=== PATIENT | male | born 1970 | race Caucasian/White ===

== ENCOUNTER 2018-04-06 15:05 | Outpatient (CLI) | payer OTHER, SELFPAY ==
--- NOTE | 2018-04-06 14:00 | DI.RAD_ITS ---
SYMPTOMS/DIAGNOSIS: LEFT HIP PAIN X 2 MOS, M25.552 LUMBAR SPINE: AP, lateral and bilateral oblique views of the lumbar spine. There are five lumbar-type vertebral bodies. There is normal alignment. No spondylolysis or spondylolisthesis is seen. The disc heights are fairly well maintained. There are endplate osteophytes present throughout the lumbar spine. Degenerative changes of the facets are seen at L3-4 through L5-S1. No acute fractures or subluxations are seen. IMPRESSION: Mild degenerative changes in the lumbar spine. LEFT HIP AND PELVIS: The left hip has a normal appearance. The sacroiliac joints and symphysis pubis are unremarkable. There is a small spur arising from the lateral aspect of the right humeral head. The soft tissues are unremarkable. IMPRESSION: 1. Negative left hip. 2. Mild degenerative changes of the right hip.
== END 2018-04-06 15:25 ==
PROVIDERS: PCP Family Medicine; Visit Provider Nurse Practitioner Family
DX: M25.552 Pain in left hip (principal); M16.11 Unilateral primary osteoarthritis, right hip; M47.817 Spondylosis without myelopathy or radiculopathy, lumbosacral region
CPT/HCPCS: 72110; 73502

== ENCOUNTER 2018-04-16 01:33 | Outpatient (CLI) | payer OTHER, SELFPAY ==
--- NOTE | 2018-04-16 08:20 | DI.MRI_ITS ---
SYMPTOMS/DIAGNOSIS: LEFT LOWER EXTREMITY RADICULOPATHY, LEFT HIP PAIN, M54.10, M25.552 MRI OF THE LUMBAR SPINE: Comparison is made with plain films dated April,. T1, T2 and STIR sagittal and T1 and T2 axial sequences were performed. The T12-L1 and L1-2 discs are unremarkable. At L2-3, there is mild broad-based disc bulging. There is no significant neural foraminal narrowing or central canal stenosis. At L3- 4, there is broad-based disc bulging, greater laterally. There are mild facet degenerative changes. There is slight central canal stenosis. At L4-5, there is mild broad-based disc bulging. There is a superimposed central disc protrusion, which is slightly eccentric toward the left. There are prominent facet degenerative changes as well as ligamentous hypertrophy. The findings combine to produce a moderate to severe degree of central canal stenosis. There is no significant neural foraminal encroachment. The L5-S1 level shows mild facet joint degenerative changes. The marrow signal and conus medullaris are unremarkable. IMPRESSION: Central disc protrusion at L4-5 causes significant impression on the thecal sac, as well as moderate to severe central canal stenosis.
== END 2018-04-16 01:53 ==
PROVIDERS: PCP Nurse Practitioner Family; Visit Provider Nurse Practitioner Family
DX: M25.552 Pain in left hip (principal); M54.16 Radiculopathy, lumbar region; M51.26 Other intervertebral disc displacement, lumbar region; M48.061 Spinal stenosis, lumbar region without neurogenic claudication
CPT/HCPCS: 72148

== ENCOUNTER 2018-05-26 09:08 | Outpatient (CLI) | payer OTHER, SELFPAY ==
[2018-05-26 11:00] LABS: Abs Immature Grans 0.01 k/cumm (0.0-0.09); Absolute Basophil Count 0.04 k/cumm (0.0-0.2); Absolute Eosinophil Count 0.21 k/cumm (0.0-0.7); Absolute Lymphocyte Count 1.85 k/cumm (1.2-3.4); Absolute Monocyte Count 0.54 k/cumm (0.11-0.7); Absolute Neutrophil Count 3.16 k/cumm (1.2-6.7); Basophils % 0.7; Eosinophils % 3.6; HCT 46.7 % (40.0-50.0); HGB 15.9 g/dL (13.5-17.5); Immature Grans % 0.2; Lymphocytes % 31.8; Mean Corpuscular Hemoglobin 30.5 pg (27.0-33.0); Mean Corpuscular Volume 89.6 fL (80-95); Mean Platelet Volume 10.1 fL (8.0-11.0); Monocytes % 9.3; Neutrophils % 54.4; Platelet Count 318 x1000/uL (130-400); RBC 5.21 m/cumm (4.50-6.00); RBC Distribution Width 12.2 % (11.8-14.1); White Blood Cell Count 5.81 k/cumm (4.4-10.8)
[2018-05-26 11:45] LABS: ALT 71 U/L (12-78); AST 33 U/L (15-37); Alkaline Phosphatase 76 U/L (46-116); Anion Gap 8.9 mmol/L (3-11); BUN 13 mg/dL (7-18); Bilirubin, Total 0.8 mg/dL (0.2-1.0); CO2 27.1 mmol/L (21.0-32.0); CREATININE 0.86 mg/dL (0.70-1.30); Calcium 9.3 mg/dL (8.5-10.1); Chloride 105 mmol/L (98-107); Cholesterol 222 mg/dL (50-200); Glucose 101 mg/dL (70-100); HDL Cholesterol 59 mg/dL (40-60); LDL CHOLESTEROL 146 mg/dL (<100); Potassium 4.5 mmol/L (3.5-5.1); Sodium 141 mmol/L (136-145); TSH 2.61 uIU/mL (0.358-3.74); Total Protein 7.3 g/dL (6.4-8.2); Triglyceride 80 mg/dL (30-150)
[2018-05-26 12:05] LABS: Hemoglobin A1C 5.8 % (4.5-6.2)
== END 2018-05-26 09:28 ==
PROVIDERS: PCP Nurse Practitioner Family; Visit Provider Nurse Practitioner Family
DX: Z00.00 Encounter for general adult medical examination without abnormal findings (principal); Z13.220 Encounter for screening for lipoid disorders; Z13.29 Encounter for screening for other suspected endocrine disorder; Z13.1 Encounter for screening for diabetes mellitus; Z01.818 Encounter for other preprocedural examination
CPT/HCPCS: 36415; 80053; 80061; 83721; 83036; 84154; 84439; 84443; 85025

== ENCOUNTER 2021-11-29 17:54 | Inpatient (IN) | payer OTHER, SELFPAY ==
[2021-11-29] VITALS (9 sets, daily range): BP systolic 123–142; BP diastolic 64–85; PULSE 66–95; RESP 16–27; TEMP 36.8–38.5; O2SAT 92–98
--- NOTE | 2021-11-29 18:45 | DI.CT_ITS ---
Exam(s) CT ABDOMEN PELVIS W EXAM: CT ABDOMEN PELVIS W CLINICAL HISTORY: RLQ pain TECHNIQUE: COMPARISON: No exams were available for comparison FINDINGS: CT examination of the abdomen and pelvis was performed with bolus infusion of 100 cc of Omnipaque 350 . Images obtained through the lung bases are unremarkable. The liver appears normal with no evidence of a focal mass. Spleen is unremarkable in appearance.. Gallbladder and bile ducts are unremarkable. Pancreas is unremarkable in appearance. Adrenals appear normal bilaterally. Kidneys appear normal with no evidence of renal mass, hydronephrosis, or nephrolithiasis. Unremarkab le bladder. There is no evidence of abdominal or pelvic adenopathy. Abdominal aorta is of normal diameter and no abnormality is seen involving major visceral branches.. The appendix is mildly dilated at 12 millimeters and there is increased attenuation in the periappend iceal fat, the findings are suspicious for early acute appendicitis. No evidence of perforation or a bscess.. No evidence diverticulitis or bowel obstruction. No significant abdominal wall hernia seen. Impression: The appearance of the appendix and periappendiceal fat is suggestive of early acute appendicitis. Pl ease correlate clinically.. RADIATION DOSE DELIVERED: 1,669.79mGy.cm Total DLP 1,669.79mGy.cm Total DLP !Error CTDIvol DATA REPOSITORY: All CT scans at this facility are submitted to the National Radiology Data Registry (NRDR) Dose Index Registry (DIR) with the [employer] (A[employer]). RADIATION OPTIMIZATION: All CT scans at this facility use at least one of these dose optimization te chniques: automated exposure control; mA and/or kV adjustment per patient size (includes targeted exa ms where dose is matched to clinical indication); or iterative reconstruction.
--- NOTE | 2021-11-29 18:48 | ED.GENADUL_ITS ---
Discharge Plan Disposition Patient Disposition: [facility] INPATIENT Condition: Stable Discharge Details Chief Complaint: Abd Prob Clinical Impression: Appendicitis Primary Care Provider: Ashanti Murry ED Provider: Dany Sue Home Meds and New Rx's Prescriptions: No Action No Known Home Meds Medical Decision Making 51-year-old gentleman presents with lack of appetite, nausea, diarrhea, right lower quadrant pain that began this morning. Examination certainly concerning for appendicitis. Plan to obtain IV access, routine screening laboratory values, give IV fluid and Zofran and reassess. Patient reports minimal relief of Zofran, given IV Phenergan. Laboratory values reveal mild nonspecific leukocytosis, otherwise unremarkable. CT shows early appendicitis. Patient given IV morphine and Zosyn Case discussed with surgery, Dr. Carpio. She is agreeable to admission and I will write bridging orders. This documentation was generated using [employer] system, please disregard any oddities of phrase or misspellings. Medical Records Medical records reviewed: Yes I reviewed the patient's medical records. Imaging Data Radiologic Study: Attestation: I personally reviewed and interpreted this imaging study as follows: Imaging: CT Scan Radiologist's impression: Addendum created by Irvin Stout MD on 11/29/2021 8:22 PM Eastern Time ([place] & [place]): THIS REPORT CONTAINS FINDINGS THAT MAY BE CRITICAL TO PATIENT CARE. The findings were verbally communicated via telephone conference with Dany Sue at 8:22 PM EDT on 11/29/2021. The findings were acknowledged and understood. Initial Report created on 11/29/2021 8:21 PM Eastern Time ([place] & [place]): PROCEDURE INFORMATION: Exam: CT Abdomen And Pelvis With Contrast Exam date and time: 11/29/2021 7:29 PM Age: 51 years old Clinical indication: Abdominal pain; Localized; Right lower quadrant (rlq); Prior surgery; Surgery date: 6+ months; Surgery type: Back surgery; Patient HX: Rlq pain, vomiting TECHNIQUE: Imaging protocol: Computed tomography of the abdomen and pelvis with contrast. Radiation optimization: All CT scans at this facility use at least one of these dose optimization techniques: automated exposure control; mA and/or kV adjustment per patient size (includes targeted exams where dose is matched to clinical indication); or iterative reconstruction. Contrast material: OMNIPAQUE 350; Contrast volume: 100 ml; Contrast route: INTRAVENOUS (IV); COMPARISON: CR XR hip LT complete AP pelvis 04/06/2018 1:42 PM FINDINGS: Lungs: The visualized portions of the lung bases are normal. Diaphragm: Small hiatal hernia. Liver: Normal. No mass. Gallbladder and bile ducts: Normal. No calcified stones. No ductal dilation.Pancreas: Normal. No ductal dilation. Spleen: Normal. No splenomegaly. Adrenal glands: Normal. No mass. Kidneys and ureters: Normal. No hydronephrosis. Stomach and bowel: Unremarkable. No obstruction. No mucosal thickening. Appendix: The appendix is not significantly thickened but is dilated measuring 1.2 cm in diameter. It does contain in the luminal air. However, there is periappendiceal fat stranding. Intraperitoneal space: Unremarkable. No free air. No significant fluid collection. Vasculature: Unremarkable. No abdominal aortic aneurysm. Lymph nodes: Unremarkable. No enlarged lymph nodes. Urinary bladder: Unremarkable as visualized. Reproductive: Unremarkable as visualized. Bones/joints: Unremarkable. No acute fracture. Soft tissues: Unremarkable. IMPRESSION: 1. Findings compatible with early acute appendicitis. 2. Small hiat al hernia. Lab Data Lab results reviewed: Yes I reviewed the patient's lab results. Labs: Laboratory Tests Range/Units 11/29/21 11/29/21 11/29/21 18:35 18:35 19:06 WBC (4.4-10.8) 10^3/uL 12.70 H RBC (4.36-5.78) 10^6/uL 4.71 Hgb (13.5-17.5) g/dL 14.8 Hct (40.0-50.0) % 42.6 MCV (80-95) fL 90 MCH (27.0-33.0) pg 31.4 MCHC (32.0-36.0) % 34.7 RDW (11.8-14.1) % 11.8 Plt Count (130-400) 10^3/uL 298 MPV (8.0-11.0) fL 9.4 Immature Gran % 0.4 Neutrophils % 88.0 Lymphocytes % 6.2 Monocytes % 5.1 Eosinophils % 0.1 Basophils % 0.2 Nucleated RBC % (0.0-0.3) % 0.0 Absolute Neutrophils (1.2-6.7) 10^3/uL 11.18 H Absolute Lymphocytes (1.2-3.4) 10^3/uL 0.79 L Absolute Monocytes (0.1-0.8) 10^3/uL 0.65 Absolute Eosinophils (0.0-0.7) 10^3/uL 0.01 Absolute Basophils (0.0-0.2) 10^3/uL 0.03 Sodium (136-145) mmol/L 142 Potassium (3.5-5.1) mmol/L 3.9 Chloride (98-107) mmol/L 105 Carbon Dioxide (21.0-32.0) mmol/L 27.9 Anion Gap (3-11) mmol/L 9.1 BUN (7-18) mg/dL 11 Creatinine (0.70-1.30) mg/dL 0.8 Est GFR (CKD-EPI 2020) (mL/min/1.73m2) 106.48 Glucose (74-106) mg/dL 145 H Calcium (8.5-10.1) mg/dL 8.8 Total Bilirubin (0.2-1.0) mg/dL 0.5 AST (15-37) U/L 19 ALT (16-63) U/L 39 Alkaline Phosphatase (46-116) U/L 71 Total Protein (6.4-8.2) g/dL 7.5 Albumin (3.4-5.0) g/dL 4.1 Lipase (73-393) U/L 55 Urine Color (Yellow) Yellow Urine Clarity (Clear) Clear Urine pH (5-8) 6.0 Ur Specific [place] (1.005-1.025) >= 1.030 H Urine Protein (Negative) mg/dL Trace H Urine Ketones (Negative) mg/dL 15 H Urine Blood (Negative) Negative Urine Nitrite (Negative) Negative Urine Bilirubin (Negative) Negative Urine Urobilinogen (Up TO 0.2) EU/dL 1.0 H Ur Leukocyte Esterase (Negative) Negative Urine RBC (0-2) HPF 0-2 Urine WBC (0-5) HPF Negative Ur Epithelial Cells (Negative) HPF Negative Urine Crystals (Negative) HPF Negative Urine Bacteria (Negative) HPF Negative Urine Mucus (Negative) Heavy Ur Culture Indicated? No Urine Glucose (Negative) mg/dL Negative HPI General Mode of arrival: ambulatory . Date/Time Provider Initiated Documentation: 11/29/21 18:34 . Limitations to Documentation: no limitations . Information obtained by: patient . History of Present Illness 51 year old M presents to the emergency department with the chief complaint of RLQ pain, described as moderate, with intensity rated at 6. Quality is described as stabbing and aching, and is localized to the abdomen. Patient reports no radiation. Patient started experiencing this hour(s) (12) and it has been constant. No relieving factors improve symptom(s), No exacerbating factors reported . Patient notes loss of appetite and nausea/vomiting (no vomiting). Patient did receive the following treatments prior to arrival, none Related Data Home Medications Medication Instructions Recorded Confirmed Unknown [No Known Home Meds] 11/29/21 11/29/21 Allergies Allergy/AdvReac Type Severity Reaction Status Date / Time No Known Allergies Allergy Verified 11/29/21 18:03 General Stated Complaint: Abd Prob GRADY: 3 Review of Systems Constitutional Constitutional: Denies fatigue, Denies fever(s) and Denies weakness Cardiovascular Cardiovascular: Denies chest pain and Denies dyspnea Respiratory Respiratory: Denies cough and Denies dyspnea Gastrointestinal Gastrointestinal: Reports abdominal pain, Denies constipation, Reports diarrhea, Reports nausea and Denies vomiting Genitourinary Genitourinary: Denies dysuria Musculoskeletal Musculoskeletal: Denies back pain Integumentary/Breasts Skin/Breast: Denies rash Neurologic Neurologic: Denies weakness Endocrine Endocrine: Denies fatigue Hematologic/Lymphatic Hematologic/Lymphatic: Denies easy bleeding and Denies easy bruising PFSH All Active Problems (Updated 11/29/21 @ 20:58 by FAY Grey) Appendicitis (Acute) Erythema migrans (Lyme disease) (Acute) Hyperlipidemia (Chronic) Surgical History H/O myringotomy (~1980) S/P tonsillectomy and adenoidectomy (~1980) Family History Mother , in her 60s of lung cancer Lung cancer Emphysema of lung Life long smoker Father , in his late 60s of brain cancer Brain cancer Heart disease Myocardial infarction in his 50s Sister No problems noted. Sister No problems noted. Brother Epilepsy Daughter No problems noted. Son No problems noted. Son No problems noted. Maternal Grandfather Alcohol abuse Maternal Grandmother No problems noted. Paternal Grandfather , of broken heart after /70 No problems noted. Paternal Grandmother , 60 Cervical cancer Social History Smoking/Tobacco Use Status: Never Second Hand Exposure: Yes Smoking risk assessment performed?: Yes Alcohol Intake: current Alcohol Intake frequency: a few times a month Alcohol type: beer Drug use: Never Substance use type: does not use Caregiver/Support person: No Household members: spouse, family and children Housing: apartment Number of Children: 3 number of grandchildren: 3 Communication Needs: None Do you need help understanding health information?: Never Pets and animals: Yes Pets and animals: cat(s) and dog(s) Sexually active: Yes Do you think of yourself as: straight/heterosexual Current gender identity: male What is your relationship status?: How often do you talk on the phone with friends or family?: twice per week How often do you get together with friends or relatives?: three or more times per week How often do you attend holiness or hoahaoism services?: decline to answer Do you belong to any clubs or organized social groups?: no Panel score (0-1 are the most socially isolated patients): 2 What type of physical activity do you participate in: walking Duration: 30-45 minutes/day Frequency: 3-4 times per week Kristie/Judaism: None Special kristie needs: No Seatbelt use: always Helmet use: No Drive intox or ride w/intox bulk tank driver: No Do you feel safe at home: Yes Do you feel safe in your relationship?: Yes Exam Const General: cooperative, healthy appearing, comfortable and no acute distress Orientation: alert, awake and oriented x3 HENMT Head: normal to inspection, normocephalic and atraumatic Face and sinus: normal facial exam Mouth: moist mucous membranes Eyes General: appearance normal, both eyes and all related structures Conjunctivae: conjunctivae normal Neck Neck: normal visual inspection, full ROM, no meningeal signs, trachea midline and supple Resp Effort & Inspection: normal respiratory effort and able to speak in complete sentences Auscultation: clear to auscultation bilaterally Cardio Rate: regular rate Rhythm: regular rhythm GI Inspection: normal to inspection Palpation: soft, not firm, no guarding, no pulsatile masses and tender at McBurney's point Auscultation: normal bowel sounds Back/Spine/Pelvis Back: no CVA tenderness and No back tenderness Skin General skin exam: no rashes or lesions noted Neuro General: patient alert, patient awake, moves all extremities and no focal motor deficits Cognition: normal cognition Speech: speech normal Gait: normal gait Sensory Exam: no sensory deficits noted Psych Appearance: grossly normal Mental Status: mental status grossly normal Course Vital Signs Vital signs: Vital Signs Temperature 36.8 C 11/29/21 17:57 Pulse 72 11/29/21 17:57 Respiratory Rate 17 11/29/21 17:57 Blood Pressure 142/85 H 11/29/21 17:57 Pulse Oximetry 98 11/29/21 17:57 Temperature 36.9 C 11/29/21 18:20 Temperature Source Tympanic 11/29/21 18:20 Pulse 66 11/29/21 18:20 Respiratory Rate 16 11/29/21 18:20 Respiratory Effort Non-Labored 11/29/21 17:59 Blood Pressure 134/75 11/29/21 18:20 Blood Pressure Position Sitting 11/29/21 17:57 Pulse Oximetry 97 11/29/21 18:20 Oxygen Delivery Method Room Air 11/29/21 18:20 Oxygen Flow Rate 0 11/29/21 18:20 Pain Level 6 11/29/21 17:59 PAWSS Have you Been Recently Intoxicated or Drunk Within the Last 30 days?: No Have you Ever Experienced Previous Episodes of Alcohol Withdrawal?: No Have you ever Experienced Withdrawal Seizures?: No Have you ever Experienced Delirium Tremens(DT)s?: No Have you ever undergone Alcohol Rehabilitation Treatment (i.e, inpt ot outpatient treatment programs)?: No Have you ever Experienced Blackouts?: No Have you ever Combined Alcohol with other Downers within the last 90 days?: No Have you ever Combined Alcohol with any other Substance of Abuse during the last 90 days?: No Result: 0
[2021-11-29] MEDS: Ondansetron 4 MG/2 ML VIAL IVP (18:50)
[2021-11-29 18:52] LABS: Abs Immature Grans 0.05 10^3/uL (0.0-0.06); Absolute Basophil Count 0.03 10^3/uL (0.0-0.2); Absolute Eosinophil Count 0.01 10^3/uL (0.0-0.7); Absolute Lymphocyte Count 0.79 10^3/uL (1.2-3.4); Absolute Monocyte Count 0.65 10^3/uL (0.1-0.8); Absolute Neutrophil Count 11.18 10^3/uL (1.2-6.7); Basophils % 0.2; Eosinophils % 0.1; HCT 42.6 % (40.0-50.0); HGB 14.8 g/dL (13.5-17.5); Immature Grans % 0.4; Lymphocytes % 6.2; MCH 31.4 pg (27.0-33.0); MCHC 34.7 % (32.0-36.0); MCV 90 fL (80-95); MPV 9.4 fL (8.0-11.0); Monocytes % 5.1; Platelet Count 298 10^3/uL (130-400); RBC 4.71 10^6/uL (4.36-5.78); RDW 11.8 % (11.8-14.1); RDW-SD 38.9 fL
[2021-11-29 19:10] LABS: ALT 39 U/L (16-63); AST 19 U/L (15-37); Albumin 4.1 g/dL (3.4-5.0); Alkaline Phosphatase 71 U/L (46-116); Anion Gap 9.1 mmol/L (3-11); BUN 11 mg/dL (7-18); Bilirubin, Total 0.5 mg/dL (0.2-1.0); CO2 27.9 mmol/L (21.0-32.0); CREATININE 0.8 mg/dL (0.70-1.30); Calcium 8.8 mg/dL (8.5-10.1); Chloride 105 mmol/L (98-107); Estimated GFR 106.48 (mL/min/1.73m2); Glucose 145 mg/dL (74-106); Lipase 55 U/L (73-393); Potassium 3.9 mmol/L (3.5-5.1); Sodium 142 mmol/L (136-145); Total Protein 7.5 g/dL (6.4-8.2)
[2021-11-29 19:17] LABS: Bilirubin Negative (Negative); Blood Negative (Negative); Clarity Clear (Clear); Glucose Negative (Negative); Ketones 15 mg/dL (Negative); Leukocyte Esterase Negative (Negative); Nitrite Negative (Negative); Specific Gravity >= 1.030 (1.005-1.025)
[2021-11-29] MEDS: Omnipaque 350 MG/ML 100 ML BTL IJ (19:25)
[2021-11-29] MEDS: Normal Saline Flush 10 ML SYR IVP (19:26)
[2021-11-29 19:30] LABS: Bacteria Negative HPF (Negative); C & S Indicated? No; Crystals Negative HPF (Negative); Epithelial Cells Negative HPF (Negative); Mucus Heavy (Negative); RBC 0-2 HPF (0-2); WBC Negative HPF (0-5)
[2021-11-29] MEDS: Normal Saline 1,000 ML 1000 ML IV (19:44)
--- NOTE | 2021-11-29 20:22 | DI.VRAD_ITS ---
Addendum created by Irvin Stout MD on 11/29/2021 8:22:10 PM EDT: THIS REPORT CONTAINS FINDINGS THAT MAY BE CRITICAL TO PATIENT CARE. The findings were verbally communicated via telephone conference with Dany Sue at 8:22 PM EDT on 11/29/2021. The findings were acknowledged and understood. Initial report created on 11/29/2021 8:21:56 PM EDT: PROCEDURE INFORMATION: Exam: CT Abdomen And Pelvis With Contrast Exam date and time: 11/29/2021 7:29 PM Age: 51 years old Clinical indication: Abdominal pain; Localized; Right lower quadrant (rlq); Prior surgery; Surgery date: 6+ months; Surgery type: Back surgery; Patient HX: Rlq pain, vomiting TECHNIQUE: Imaging protocol: Computed tomography of the abdomen and pelvis with contrast. Radiation optimization: All CT scans at this facility use at least one of these dose optimization techniques: automated exposure control; mA and/or kV adjustment per patient size (includes targeted exams where dose is matched to clinical indication); or iterative reconstruction. Contrast material: OMNIPAQUE 350; Contrast volume: 100 ml; Contrast route: INTRAVENOUS (IV); COMPARISON: CR XR hip LT complete AP pelvis 04/06/2018 1:42 PM FINDINGS: Lungs: The visualized portions of the lung bases are normal. Diaphragm: Small hiatal hernia. Liver: Normal. No mass. Gallbladder and bile ducts: Normal. No calcified stones. No ductal dilation. Pancreas: Normal. No ductal dilation. Spleen: Normal. No splenomegaly. Adrenal glands: Normal. No mass. Kidneys and ureters: Normal. No hydronephrosis. Stomach and bowel: Unremarkable. No obstruction. No mucosal thickening. Appendix: The appendix is not significantly thickened but is dilated measuring 1.2 cm in diameter. It does contain in the luminal air. However, there is periappendiceal fat stranding. Intraperitoneal space: Unremarkable. No free air. No significant fluid collection. Vasculature: Unremarkable. No abdominal aortic aneurysm. Lymph nodes: Unremarkable. No enlarged lymph nodes. Urinary bladder: Unremarkable as visualized. Reproductive: Unremarkable as visualized. Bones/joints: Unremarkable. No acute fracture. Soft tissues: Unremarkable. IMPRESSION: 1. Findings compatible with early acute appendicitis. 2. Small hiatal hernia. Dictated and Authenticated by: Irvin Stout MD. Ordering:TREY Saenz MD
[2021-11-29] MEDS: MORPHine 4 MG/ML SYR IVP (20:45)
[2021-11-29] MEDS: Normal Saline 1,000 ML 150 ML IV (20:55)
[2021-11-29] MEDS: Piperacillin/Tazobactam 3.375 GM VIAL (21:05)
[2021-11-29 22:09] LABS: Source Nasal/Nares
--- NOTE | 2021-11-29 22:14 | W.PREOPHP ---
Assessment and Plan Assessment and plan (1) Appendicitis: Status: Acute Assessment and plan: Mr. Lewis is a pleasant 51-year-old gentleman who started with abdominal pain nausea vomiting and diarrhea this morning. The pain eventually settled in the right lower quadrant. CT scan shows mild dilation of the appendix as well as some fat stranding. His white count is also slightly elevated. I discussed with the patient medical management of appendicitis versus surgical management of appendicitis. We reviewed the recurrence incidence of appendicitis after antibiotic treatment of 35% over the next 5 years. We also reviewed the risks and complications of surgery. After answering his questions he elected for surgery. Risks, benefits and complications have been reviewed. Complications include but are not limited to bleeding, infection, injury to adjacent bowel, abscess formation, staple line leak, inability to do the procedure laparoscopically and adverse reaction to the medications. Questions were entertained and answered to their satisfaction and they wished to proceed. No guarantees were given or implied. Patient has been COVID tested. As he has early appendicitis we will go ahead and do the surgery in the morning. Proceed with laparoscopic appendectomy in the morning History of Present Illness Consults Consult date: 11/29/21 Requesting physician: Dany Sue Narrative: Mr. Lewis is a pleasant 51-year-old gentleman who presented to the ER with lack of appetite, nausea, diarrhea, and right lower quadrant pain that began this morning.? Work-up in the emergency department showed slight elevation of his white blood cell count to 12.72. CT scan was also done which I reviewed. It showed a mildly dilated appendix with some fat stranding. The patient is doing a little better right now with some pain medications on board. Antibiotics were started in the emergency department. The patient is otherwise healthy. He denies chest pain or shortness of breath. He denies a history of cardiac disease. He does not take any medications. Review of Systems Constitutional Constitutional: Denies fatigue, Denies fever(s), Denies headache(s), Reports poor appetite and Denies weight loss Eyes Eyes: Denies change in vision ENT Ears, Nose, Mouth, and Throat: Denies dysphagia, Denies headache(s) and Denies odynophagia Cardiovascular Cardiovascular: Denies chest pain, Denies chest pain at rest, Denies irregular heart rhythm, Denies palpitations, Denies dyspnea and Denies dyspnea on exertion Respiratory Respiratory: Denies cough, Denies dyspnea and Denies dyspnea on exertion Gastrointestinal Gastrointestinal: Reports as per HPI, Denies dysphagia, Denies dyspepsia, Denies heartburn and Denies odynophagia Genitourinary Genitourinary: Reports system reviewed and no additional complaints, except as documented Musculoskeletal Musculoskeletal: Reports system reviewed and no additional complaints, except as documented Integumentary/Breasts Skin/Breast: Reports system reviewed and no additional complaints, except as documented Neurologic Neurologic: Reports system reviewed and no additional complaints, except as documented and Denies headache(s) Psychiatric Psychiatric: Reports system reviewed and no additional complaints, except as documented Endocrine Endocrine: Reports system reviewed and no additional complaints, except as documented, Denies fatigue and Denies palpitations Hematologic/Lymphatic Hematologic/Lymphatic: Reports system reviewed and no additional complaints, except as documented PFSH All Active Problems (Updated 11/29/21 @ 22:18 by Joyce Carpio MD) Appendicitis (Acute) Medical History (Updated 11/29/21 @ 22:18 by Joyce Carpio MD) Erythema migrans (Lyme disease) Hyperlipidemia Surgical History H/O myringotomy (~1980) S/P tonsillectomy and adenoidectomy (~1980) Family History Mother , in her 60s of lung cancer Lung cancer Emphysema of lung Life long smoker Father , in his late 60s of brain cancer Brain cancer Heart disease Myocardial infarction in his 50s Sister No problems noted. Sister No problems noted. Brother Epilepsy Daughter No problems noted. Son No problems noted. Son No problems noted. Maternal Grandfather Alcohol abuse Maternal Grandmother No problems noted. Paternal Grandfather , of broken heart after /70 No problems noted. Paternal Grandmother , 60 Cervical cancer Social History Smoking/Tobacco Use Status: Never Second Hand Exposure: Yes Smoking risk assessment performed?: Yes Alcohol Intake: current Alcohol Intake frequency: a few times a month Alcohol type: beer Drug use: Never Substance use type: does not use Caregiver/Support person: No Household members: spouse, family and children Housing: apartment Number of Children: 3 number of grandchildren: 3 Communication Needs: None Do you need help understanding health information?: Never Pets and animals: Yes Pets and animals: cat(s) and dog(s) Sexually active: Yes Do you think of yourself as: straight/heterosexual Current gender identity: male What is your relationship status?: How often do you talk on the phone with friends or family?: twice per week How often do you get together with friends or relatives?: three or more times per week How often do you attend zoroastrian or mandaen services?: decline to answer Do you belong to any clubs or organized social groups?: no Panel score (0-1 are the most socially isolated patients): 2 What type of physical activity do you participate in: walking Duration: 30-45 minutes/day Frequency: 3-4 times per week Kristie/Uatsdin: None Special kristie needs: No Seatbelt use: always Helmet use: No Drive intox or ride w/intox full service vending driver: No Do you feel safe at home: Yes Do you feel safe in your relationship?: Yes Meds Allergies and Home Medications Allergies Allergy/AdvReac Type Severity Reaction Status Date / Time No Known Allergies Allergy Verified 11/29/21 18:03 Home Medications Medication Instructions Recorded Confirmed Type Unknown [No Known Home Meds] 11/29/21 11/29/21 History Exam Const General: cooperative, comfortable and no acute distress Nutritional Appearance: average body habitus Orientation: alert, awake and oriented x3 HENMT Head: normocephalic and atraumatic Resp Effort & Inspection: normal respiratory effort Auscultation: clear to auscultation bilaterally Cardio Rate: regular rate Rhythm: regular rhythm Heart Sounds: no gallops, no murmurs and no rubs GI Inspection: normal to inspection Palpation: soft, no hepatosplenomegaly and nontender (RLQ, no rebound) Auscultation: normal bowel sounds Results Imaging Abdomen CT scan report/results: report reviewed and image reviewed Labs Result diagrams: 11/29/21 18:35 11/29/21 18:35 Labs: Laboratory Results - last 24 hr 11/29/21 11/29/21 11/29/21 18:35 18:35 19:06 WBC 12.70 H RBC 4.71 Hgb 14.8 Hct 42.6 MCV 90 MCH 31.4 MCHC 34.7 RDW 11.8 Plt Count 298 MPV 9.4 Immature Gran % 0.4 Neutrophils % 88.0 Lymphocytes % 6.2 Monocytes % 5.1 Eosinophils % 0.1 Basophils % 0.2 Nucleated RBC % 0.0 Absolute Neutrophils 11.18 H Absolute Lymphocytes 0.79 L Absolute Monocytes 0.65 Absolute Eosinophils 0.01 Absolute Basophils 0.03 Sodium 142 Potassium 3.9 Chloride 105 Carbon Dioxide 27.9 Anion Gap 9.1 BUN 11 Creatinine 0.8 Est GFR (CKD-EPI 2020) 106.48 Glucose 145 H Calcium 8.8 Total Bilirubin 0.5 AST 19 ALT 39 Alkaline Phosphatase 71 Total Protein 7.5 Albumin 4.1 Lipase 55 Urine Color Yellow Urine Clarity Clear Urine pH 6.0 Ur Specific [place] >= 1.030 H Urine Protein Trace H Urine Ketones 15 H Urine Blood Negative Urine Nitrite Negative Urine Bilirubin Negative Urine Urobilinogen 1.0 H Ur Leukocyte Esterase Negative Urine RBC 0-2 Urine WBC Negative Ur Epithelial Cells Negative Urine Crystals Negative Urine Bacteria Negative Urine Mucus Heavy Ur Culture Indicated? No Urine Glucose Negative COVID-19 Source 11/29/21 21:53 WBC RBC Hgb Hct MCV MCH MCHC RDW Plt Count MPV Immature Gran % Neutrophils % Lymphocytes % Monocytes % Eosinophils % Basophils % Nucleated RBC % Absolute Neutrophils Absolute Lymphocytes Absolute Monocytes Absolute Eosinophils Absolute Basophils Sodium Potassium Chloride Carbon Dioxide Anion Gap BUN Creatinine Est GFR (CKD-EPI 2020) Glucose Calcium Total Bilirubin AST ALT Alkaline Phosphatase Total Protein Albumin Lipase Urine Color Urine Clarity Urine pH Ur Specific [place] Urine Protein Urine Ketones Urine Blood Urine Nitrite Urine Bilirubin Urine Urobilinogen Ur Leukocyte Esterase Urine RBC Urine WBC Ur Epithelial Cells Urine Crystals Urine Bacteria Urine Mucus Ur Culture Indicated? Urine Glucose COVID-19 Source Nasal/Nares Last Vital Signs Temp 101.3 F H 11/29/21 21:29 Pulse 91 H 11/29/21 21:29 Resp 16 11/29/21 21:29 BP 133/80 11/29/21 21:29 Pulse Ox 96 11/29/21 21:29
[2021-11-29] MEDS: Lactated Ringers 1,000 ML 125 ML IV (22:16)
[2021-11-29 22:58] LABS: COVID-19 PCR Negative (Negative)
[2021-11-30] VITALS (21 sets, daily range): BP systolic 96–150; BP diastolic 56–83; PULSE 57–105; RESP 12–27; TEMP 36.2–38.5; O2SAT 92–98; BMI 34.7
[2021-11-30] MEDS: Normal Saline Flush 10 ML SYR IVP ×4 (00:25→21:48)
[2021-11-30] MEDS: Ketorolac 30 MG/ML VIAL IVP ×3 (00:25→21:46)
[2021-11-30] MEDS: Normal Saline 500 ML 30 ML IV (05:41)
[2021-11-30] MEDS: PIPERACILLIN/TAZO 3.375 GM in Normal Saline 50 ML IVPB ×4 (05:41→21:47)
[2021-11-30] MEDS: Lactated Ringers 1,000 ML 125 ML IV ×2 (06:24→15:16)
--- NOTE | 2021-11-30 06:54 | ANES.PREOP_ITS ---
General Info Date of Service Date Performed: 11/30/21 Height: 6 ft 2 in Weight: 122.6 kg Body Mass Index (BMI): 34.7 Surgical Procedure: Operation Date: 11/30/21 07:40 Proposed Procedure Side Surgeon p Appendectomy Laparoscopic Joyce Carpio MD Meds Allergies and Home Medications Allergies Allergy/AdvReac Type Severity Reaction Status Date / Time No Known Allergies Allergy Verified 11/29/21 18:03 Home Medication Medication Instructions Recorded Unknown [No Known Home Meds] 11/29/21 Current Visit Medications: Current Medications Generic Name Dose Route Start Last Admin Trade Name Freq PRN Reason Stop Dose Admin Sodium Chloride 500 mls @ 0 mls/hr 11/29/21 20:24 11/30/21 05:41 Saline 500ml Bag IV 30 mls/hr PRN PRN Administration As Directed Ringer's Solution 1,000 mls @ 125 mls/hr 11/29/21 22:00 11/30/21 06:24 IV 125 mls/hr INFUSION ANNITA Administration Piperacillin Sod/Tazobactam 50 mls @ 100 mls/hr 11/30/21 04:00 11/30/21 05:41 Sod 3.375 gm/ Sodium Chloride IVPB 100 mls/hr Q6H ANNITA Administration Protocol Acetaminophen 1,000 mg in 100 mls @ 400 mls/hr 11/30/21 00:25 Ofirmev IVPB Q8H PRN PRN IV Miscellaneous Supplies 1 each 11/29/21 18:45 Iv Access IV DIRECTED ANNITA IV Miscellaneous Supplies 1 each 11/29/21 20:30 Iv Access IV DIRECTED ANNITA Iohexol 100 ml 11/29/21 19:30 11/29/21 19:25 Omnipaque 350 Mg/Ml 100 Ml Btl IJ 12/29/21 23:59 100 ml DIRECTED ANNITA Administration Ketorolac Tromethamine 30 mg 11/29/21 22:24 11/30/21 00:25 Ketorolac 30 Mg/Ml Vial IVP 12/04/21 22:23 30 mg Q6H PRN PRN Administration Morphine Sulfate 2 mg 11/29/21 21:16 Morphine 10 Mg/Ml Vial IVP Q2H PRN PRN Ondansetron HCl 4 mg 11/29/21 21:15 Ondansetron 4 Mg/2 Ml Vial IVP Q4H PRN PRN Sodium Chloride 250 ml 11/29/21 19:30 11/29/21 19:25 Normal Saline 250 Ml Bag IJ 50 ml DIRECTED ANNITA Administration Sodium Chloride 0 ml 11/29/21 19:26 11/30/21 00:25 Normal Saline Flush 10 Ml Syr IVP 10 ml PRN PRN Administration Sodium Chloride 0 ml 11/29/21 20:24 Normal Saline Flush 10 Ml Syr IVP PRN PRN PFSH Active Problems Active Problems: Problem Status Onset Code Appendicitis K37 Medical History Medical History (Updated 11/29/21 @ 22:18 by Joyce Carpio MD) Erythema migrans (Lyme disease) Hyperlipidemia Surgical History Surgical History H/O myringotomy (~1980) S/P tonsillectomy and adenoidectomy (~1980) Tobacco Smoking/Tobacco Use Status: Never Second hand exposure: Yes Alcohol Alcohol Intake: current Alcohol intake frequency: a few times a month Alcohol type: beer Substance Use Substance use: Never Substance use type: does not use Vital Signs and Lab Results Vital Signs Most Recent Vital Signs in EMR: Most Recent Vital Signs Temp Pulse Resp BP Pulse Ox 36.6 C 90 16 118/73 96 11/30/21 06:24 11/30/21 06:24 11/30/21 06:24 11/30/21 06:24 11/30/21 06:24 Lab Results Result Diagrams: 11/29/21 18:35 11/29/21 18:35 Blood Type / Crossmatch: No Data to Display Complete Blood Count: White Blood Count 12.70 10^3/uL (4.4-10.8) H 11/29/21 18:35 Red Blood Count 4.71 10^6/uL (4.36-5.78) 11/29/21 18:35 Hemoglobin 14.8 g/dL (13.5-17.5) 11/29/21 18:35 Hematocrit 42.6 % (40.0-50.0) 11/29/21 18:35 Platelet Count 298 10^3/uL (130-400) 11/29/21 18:35 Complete Metabolic Panel: Sodium Level 142 mmol/L (136-145) 11/29/21 18:35 Potassium Level 3.9 mmol/L (3.5-5.1) 11/29/21 18:35 Chloride Level 105 mmol/L (98-107) 11/29/21 18:35 Carbon Dioxide Level 27.9 mmol/L (21.0-32.0) 11/29/21 18:35 Blood Urea Nitrogen 11 mg/dL (7-18) 11/29/21 18:35 Creatinine 0.8 mg/dL (0.70-1.30) 11/29/21 18:35 Calcium Level 8.8 mg/dL (8.5-10.1) 11/29/21 18:35 Albumin 4.1 g/dL (3.4-5.0) 11/29/21 18:35 Glucose Level 145 mg/dL (74-106) H 11/29/21 18:35 Liver Function Panel: Alanine Aminotransferase (ALT/SGPT) 39 U/L (16-63) 11/29/21 18: 35 Aspartate Amino Transf (AST/SGOT) 19 U/L (15-37) 11/29/21 18:35 Coagulation Panel: No Data to Display Cardiac Panel: No Data to Display Arterial Blood Gas: No Data to Display Venous Blood Gas: No Data to Display Pancreas Panel: Lipase 55 U/L (73-393) 11/29/21 18:35 Thyroid Panel: No Data to Display Infectious Disease: Coronavirus (COVID-19)(PCR) Negative (Negative) 11/29/21 21:53 Coronavirus 2019 Source Nasal/Nares 11/29/21 21:53 Blood Cultures: No Data to Display Toxicology Panel: No Data to Display Anesthesia Assessment and Plan Anesthesia History Personal History: No History of Anesthesia Complications Family History: No Family History of Anesthesia Complications Exercise Tolerance Exercise Tolerance: Metabolic Equivalents>4 Pertinent Negatives Pertinent Negatives: No Symptoms of GERD, No Major Cardiovascular Symptoms or Complaints, No Major Pulmonary Symptoms or Complaints and No History of CVA/TIA Cardiac & Pulmonary Exam Cardiac Exam: Normal S1/S2 Heart Sounds Pulmonary Exam: Clear Bilateral Breath Sounds Implantable Cardiac Device Does patient have a Pacemaker or an ICD?: No Airway Exam Known Difficult Airway: No Mallampati Class: 2 Mouth Opening: Normal (> 3cm) Thyromental Distance: Greater than 3 cm Neck Range of Motion: Full ROM Neck Circumference: Normal Teeth Condition: Normal Dentition ASA Classification ASA Score: ASA 2 Emergency Case?: No NPO Status NPO Status: NPO Clears >2 hours, Solids >8 hours Anesthesia Plan Resuscitation Status: Full Code Anesthesia Technique: General Anesthesia Airway Planned: Endotracheal Tube Monitors Used: Standard Monitors
[2021-11-30] MEDS: Bupivacaine 0.25% Pres-Free 30 ML VIAL (08:05)
--- NOTE | 2021-11-30 08:05 | APP_PTH ---
PATIENT: Efrain Lewis LOC: U#:[id number] AGE/SX: 51/M ROOM: [facility] RE11/29/[address]: Joyce Carpio MD : 1970 BED: A DIS: 12/02/2021 SPEC #: [id number] RECD: 11/30/21 12:45 STATUS: SOUGio REQ #: [id number] KRISHAN: 11/30/21 08:[address]: Joyce Carpio DEPT: Surgical Specimen RECD BY: Leda Soliman ENTERED: 11/30/21 12:45 SP TYPE: Appendix OTHR DR: BROCK Camejo Tissues: 1 - APPENDIX NOT INCIDENTAL Procedures: GROSS AND MICRO LEVEL 3 Comments: [id number]
--- NOTE | 2021-11-30 08:47 | ROE_ITS ---
Date of service: 11/30/21 Time of Service: 07:45 Operative Note Operative Note DATE OF PROCEDURE: 11/30/21 PRE-OP DIAGNOSIS: acute appendicitis POST-OP DIAGNOSIS: other (acute gangrenous appendicitis) PROCEDURE: Laparoscopic appendectomy SURGEON: Joyce Carpio SENIOR INTEGRATION ARCHITECT: Henna Carlos ANESTHESIA TYPE: General LMA/ETT Refer to Anesthesia Record ESTIMATED BLOOD LOSS: 10 PATHOLOGY: other (appendix) COMPLICATIONS: None Patient was transported to: PACU Patient's condition: stable Implants: None Indications: Mr. Lewis is a pleasant 51-year-old gentleman who started with abdominal pain nausea vomiting and diarrhea this morning.? The pain eventually settled in the right lower quadrant.? CT scan shows mild dilation of the appendix as well as some fat stranding.? His white count is also slightly elevated.? I discussed with the patient medical management of appendicitis versus surgical management of appendicitis.? We reviewed the recurrence incidence of appendicitis after antibiotic treatment of 35% over the next 5 years.? We also reviewed the risks and complications of surgery.? After answering his questions he elected for surgery.? Risks, benefits and complications have been reviewed. Complications include but are not limited to bleeding, infection, injury to adjacent bowel, abscess formation, staple line leak, inability to do the procedure laparoscopically and adverse reaction to the medications. Questions were entertained and answered to their satisfaction and they wished to proceed. No guarantees were given or implied. Findings: acute gangrenous appendix Procedure Description: After informed consent was obtained the patient was taken to the operating room placed in the supine position, SCDs were applied as well as monitors. A timeout was done. The patient was then placed under general anesthesia and intubated without any difficulty. The abdominal hair was clipped. Next the abdomen was prepped and draped in a sterile surgical fashion with chlorhexidine. A timeout was done and the patient's name, date of , operation to be performed, DVT prophylaxis, antibiotic given, and fire risk was assessed. 0.25% Bupivocaine was injected into the dermis just above the umbilicus. A small 5 mm incision was made with an 11 blade. The skin was grasped with penetrating towel clamps on either side of the incision and then using a Visiport a 5 mm port was placed under direct visualization into the abdomen. The abdomen was insufflated. Local anesthetic was then injected just above the pubic symphysis. A small 5 mm incision was made with an 11 blade and another 5 mm port was placed under direct visualization into the abdomen. The local anesthetic was then injected in the left lower quadrant area and a 12 mm incision was made with an 11 blade. A 12 mm port was then placed under direct visualization. The patient's bed was then turned to the left and head down allowing me to sweep of the small bowel out of the right lower quadrant. The cecum was gently grasped and the appendix was identified. The appendix looked gangrenous and thickened. No purulent fluid was noted. The appendix was grasped at the neck and pulled up slightly allowing me to visualize the junction with the cecum. Using the laparoscopic LigaSure the mesoappendix was slowly transected. Using a laparoscopic straight stapler the appendix was then transected at the junction with the cecum. The appendix was placed into an Endo Catch bag and removed through the 12 mm port site. The port was placed back into the abdomen and the staple line was identified. No bleeding was noted. The transected mesentery was identified and no bleeding was noted. The abdomen was irrigated with 500 cc of warm NS. The fluid was suctioned out. The rest of the bupivocaine was injected above the liver bed. The 12 mm port was removed under direct visualization and there was no bleeding noted from the fascia. The 12 mm port site fascia was closed with a 0 Vicryl [id number] suture. One 5 mm ports was then removed under direct visualization and no bleeding was noted from the fascia. The insufflation was stopped. The last 5 mm port was removed. The skin was then closed with 4-0 Vicryl. The skin was cleaned and dried and skin affix was applied. The patient was woken up, extubated and taken back to recovery room in stable condition. There were no immediate complications. Sponge, instrument and needle counts were correct at the end of the case x2.
[2021-11-30] MEDS: fentaNYL 100 MCG/2 ML VIAL IVP (09:31)
--- NOTE | 2021-11-30 09:34 | W.ANESPOSTOP ---
Postoperative Evaluation Date, Time and Location Date Performed: 11/30/21 Time Performed: : Patient Location: PACU Vital Signs Most Recent Imported Vital Signs: Most Recent Vital Signs Temp Pulse Resp BP Pulse Ox 36.8 C 72 20 111/67 93 11/30/21 08:55 11/30/21 09:20 11/30/21 09:20 11/30/21 09:20 11/30/21 09:20 Pain Score Most Recent Pain Score: Most Recent Pain Score Pain Level 0 11/30/21 09:20 Assessment Mental Status: Awake (Alert & Oriented to Patient Baseline) Airway and Respiratory Function: Patent airway with normal (patient baseline) respiratory exam Cardiovascular Function: Hemodynamically Stable Hydration Status: Adequately Hydrated Nausea & Vomiting: No Nausea or Vomiting Pain: Pain is tolerable per patient Peripheral Nerve Block: Patient did not receive a nerve block
--- NOTE | 2021-11-30 10:30 | INITIAL_ITS ---
- If Service Date Differs Date of service: 11/30/21 Time of Service: 10:30 Care Management Initial Assess REASON FOR HOSPITALIZATION:: appendicitis PAST MEDICAL HISTORY/PAST SURGICAL HISTORY:: All Active Problems (Updated 11/29/21 @ 22:18 by Joyce Carpio MD). Appendicitis (Acute). Medical History (Updated 11/29/21 @ 22:18 by Joyce Carpio MD). Erythema migrans (Lyme disease). Hyperlipidemia. Surgical History . H/O myringotomy (~1980). S/P tonsillectomy and adenoidectomy (~1980) PREVIOUS FUNCTIONAL STATUS/SOCIAL/FAMILY SUPPORTS:: Efrain lives in an apartment in [place] with his Yomaira. He works at [employer] and is independent at baseline. CURRENT FUNCTIONAL STATUS:: Efrain was sitting up in a chair when CM met with him. His and daughter were visiting at the time. Efrain indicated that he believes he may be discharged later today but is not sure. He would like to go, if possible. He stated that he is feeling much better than he did before surgery. He denied the need for any services at home. ADVANCE DIRECTIVES:: none on file Has patient been provided with info about the portal/API?: Yes Did the patient sign up for the portal?: No CODE STATUS:: Full Code INSURANCE COVERAGE / FINANCIAL ISSUES:: [facility] CURRENT HOME/COMMUNITY SERVICES/EQUIPMENT:: none PRIMARY CARE PHYSICIAN:: Ashanti Murry POTENTIAL DISCHARGE NEEDS:: Follow up with surgeon and plan of care PATIENT/FAMILY EDUCATION NEEDS:: Review of discharge instructions, limitations, follow up plan, activity, discuss Ask Me Three TRANSPORTATION:: via private vehicle with PLAN:: Efrain will likely be discharged home with no new services. He will follow up with his community providers and plan of care and transport with family. CM will follow and assess for any discharge concerns.
[2021-12-01] MEDS: Lactated Ringers 1,000 ML 125 ML IV
[2021-12-01] MEDS: PIPERACILLIN/TAZO 3.375 GM in Normal Saline 50 ML IVPB ×4 (03:47→21:08)
[2021-12-01] MEDS: Normal Saline Flush 10 ML SYR IVP ×3 (03:48→21:09)
[2021-12-01 03:54] VITALS: BP 123/76; PULSE 66; RESP 12; TEMP 37.2; O2SAT 95
[2021-12-01 06:45] LABS: HCT 38.6 % (40.0-50.0); HGB 13.2 g/dL (13.5-17.5); MCH 31.6 pg (27.0-33.0); MCHC 34.2 % (32.0-36.0); MCV 92 fL (80-95); MPV 10.5 fL (8.0-11.0); Platelet Count 162 10^3/uL (130-400); RBC 4.18 10^6/uL (4.36-5.78); RDW-SD 41.4 fL; WBC 19.21 10^3/uL (4.4-10.8)
[2021-12-01 07:03] LABS: Anion Gap 3.6 mmol/L (3-11); BUN 18 mg/dL (7-18); CO2 25.4 mmol/L (21.0-32.0); Calcium 8.4 mg/dL (8.5-10.1); Chloride 105 mmol/L (98-107); Estimated GFR 90.56 (mL/min/1.73m2); Glucose 147 mg/dL (74-106); Potassium 3.3 mmol/L (3.5-5.1); Sodium 134 mmol/L (136-145)
[2021-12-01 07:41] VITALS: BP 108/66; PULSE 59; RESP 16; TEMP 36.9; O2SAT 97
--- NOTE | 2021-12-01 09:16 | PDOC.CMDIS ---
- If Service Date Differs Date of service: 12/01/21 Time of Service: 09:16 LACE Index Scoring Tool - Questions: Length of Stay (in days): 2 Acuity (Admit via E.D.?): Yes E.D. Visits: 1 - Answers: Total Score: 6 Risk of Readmission: Low Risk Care Management Discharge Reason for Hospitalization: appendicitis Discharge Plan: Efrain will likely be discharged home with no new services. He will follow up with his community providers and plan of care and transport with family. Patient/Family Education Needs: Review of discharge instructions, limitations, follow up plan, activity, discuss Ask Me Three
--- NOTE | 2021-12-01 10:16 | W.PM.PROGNOT ---
Date of Service Date of service: 12/01/21 Time of Service: 10:16 Assessment and Plan Assessment and plan (1) Appendicitis: Status: Acute Assessment and plan: Leukocytosis has increased today to 19.21 and patient was having low grade fevers late last night and early this morning. Continue IV antibiotics Patient's pain is well controlled Tolerating a regular diet Encouraged ambulation and sitting in the chair throughout the day. Patient will need to continue with IV antibiotics. Subjective Subjective Interval history since last seen: Patient reports feeling well. He states that he has some discomfort when repositioning in bed. He denies any nausea or vomiting. Exam Const General: cooperative, healthy appearing and comfortable Orientation: alert and oriented x3 Resp Effort & Inspection: normal respiratory effort, no audible wheezes and no cough GI Inspection: normal to inspection Palpation: soft, no guarding and tender in the RLQ Objective Last Vital Signs Temp 36.9 C 12/01/21 07:41 Pulse 59 L 12/01/21 07:41 Resp 16 12/01/21 07:41 BP 108/66 12/01/21 07:41 Pulse Ox 97 12/01/21 07:41 Laboratory Results - last 24 hr 12/01/21 12/01/21 05:37 05:37 WBC 19.21 H RBC 4.18 L Hgb 13.2 L Hct 38.6 L MCV 92 MCH 31.6 MCHC 34.2 RDW 12.0 Plt Count 162 MPV 10.5 Sodium 134 L Potassium 3.3 L Chloride 105 Carbon Dioxide 25.4 Anion Gap 3.6 BUN 18 Creatinine 1.0 Est GFR (CKD-EPI 2020) 90.56 Glucose 147 H Calcium 8.4 L PAWSS Have you Been Recently Intoxicated or Drunk Within the Last 30 days?: No Have you Ever Experienced Previous Episodes of Alcohol Withdrawal?: No Have you ever Experienced Withdrawal Seizures?: No Have you ever Experienced Delirium Tremens(DT)s?: No Have you ever undergone Alcohol Rehabilitation Treatment (i.e, inpt ot outpatient treatment programs)?: No Have you ever Experienced Blackouts?: No Have you ever Combined Alcohol with other Downers within the last 90 days?: No Have you ever Combined Alcohol with any other Substance of Abuse during the last 90 days?: No Positive Blood Alcohol level on Presentation? [PCS.BAL]: No Evidence of Increased Autonomic Activity (i.e. HR>120, tremor, sweating, agitation, nausea)?: No Result: 0
--- NOTE | 2021-12-01 14:27 | CHAPLAIN ---
Efrain had an appendectomy and said he was looking forward to being discharged sometime today. His was waiting with him.
[2021-12-01 15:35] VITALS: BP 129/81; PULSE 61; RESP 16; TEMP 36.7; O2SAT 98
--- NOTE | 2021-12-01 15:58 | CMPROGNOTE_ITS ---
- If Service Date Differs Date of service: 12/01/21 Time of Service: 15:58 Care Management Progress Note S/O: Efrain was to be discharged today but his WBC increased from 12.7 to 19.2. he was visiting in his room with his when CM met with him. he had requested copies of the VT. AD forms which CM provided. CM offered to assist with their completion if needed. Efrain stated that he is feeling well and his pain is much improved. He will remain at [facility] for an additional 24 of IV antibiotic therapy. A: Efrain is a 51 year old man admitted with appendicitis on 11/29/21. P:Efrain will likely be discharged home with no new services. He will follow up with his community providers and plan of care and transport with family. CM will follow and assess for any discharge concerns.
[2021-12-01 22:55] VITALS: BP 120/69; PULSE 51; RESP 16; TEMP 37; O2SAT 97
[2021-12-02] MEDS: PIPERACILLIN/TAZO 3.375 GM in Normal Saline 50 ML IVPB (04:08)
[2021-12-02] MEDS: Normal Saline Flush 10 ML SYR IVP (04:09)
[2021-12-02 07:35] LABS: Abs Immature Grans 0.03 10^3/uL (0.0-0.06); Absolute Basophil Count 0.04 10^3/uL (0.0-0.2); Absolute Eosinophil Count 0.05 10^3/uL (0.0-0.7); Absolute Lymphocyte Count 1.24 10^3/uL (1.2-3.4); Absolute Monocyte Count 0.74 10^3/uL (0.1-0.8); Absolute Neutrophil Count 8.06 10^3/uL (1.2-6.7); Basophils % 0.4; Eosinophils % 0.5; HCT 40.6 % (40.0-50.0); HGB 13.7 g/dL (13.5-17.5); Immature Grans % 0.3; Lymphocytes % 12.2; MCHC 33.7 % (32.0-36.0); MCV 92 fL (80-95); MPV 9.9 fL (8.0-11.0); Monocytes % 7.3; Neutrophils % 79.3; Platelet Count 177 10^3/uL (130-400); RBC 4.42 10^6/uL (4.36-5.78); RDW 11.9 % (11.8-14.1); RDW-SD 40.7 fL; WBC 10.16 10^3/uL (4.4-10.8)
[2021-12-02 08:20] VITALS: BP 127/83; PULSE 63; RESP 16; TEMP 36.1; O2SAT 98
--- NOTE | 2021-12-02 08:22 | W.PM.PROGNOT ---
Date of Service Date of service: 12/02/21 Time of Service: : Assessment and Plan Assessment and plan (1) Appendicitis: Status: Acute Assessment and plan: Leukocytosis has resolved Will transition to p.o. Augmentin Patient's pain is well controlled Tolerating a regular diet Encouraged ambulation and sitting in the chair throughout the day. Discharge home later today. Patient will require a follow-up with surgical office in 2 weeks. Subjective Subjective Interval history since last seen: Patient describes having some mild abdominal discomfort which is provoked with transferring in and out of bed. He states otherwise he is feeling well and is eager to go home. He denies having any nausea or vomiting. Exam Const General: cooperative, healthy appearing and comfortable Orientation: alert and oriented x3 Resp Effort & Inspection: normal respiratory effort, no audible wheezes and no cough GI Inspection: normal to inspection Palpation: soft, no guarding and tender in the LLQ Objective Last Vital Signs Temp 36.1 C L 12/02/21 08:20 Pulse 63 12/02/21 08:20 Resp 16 12/02/21 08:20 BP 127/83 12/02/21 08:20 Pulse Ox 98 12/02/21 08:20 Laboratory Results - last 24 hr 12/02/21 07:07 WBC 10.16 RBC 4.42 Hgb 13.7 Hct 40.6 MCV 92 MCH 31.0 MCHC 33.7 RDW 11.9 Plt Count 177 MPV 9.9 Immature Gran % 0.3 Neutrophils % 79.3 Lymphocytes % 12.2 Monocytes % 7.3 Eosinophils % 0.5 Basophils % 0.4 Nucleated RBC % 0.0 Absolute Neutrophils 8.06 H Absolute Lymphocytes 1.24 Absolute Monocytes 0.74 Absolute Eosinophils 0.05 Absolute Basophils 0.04 PAWSS Have you Been Recently Intoxicated or Drunk Within the Last 30 days?: No Have you Ever Experienced Previous Episodes of Alcohol Withdrawal?: No Have you ever Experienced Withdrawal Seizures?: No Have you ever Experienced Delirium Tremens(DT)s?: No Have you ever undergone Alcohol Rehabilitation Treatment (i.e, inpt ot outpatient treatment programs)?: No Have you ever Experienced Blackouts?: No Have you ever Combined Alcohol with other Downers within the last 90 days?: No Have you ever Combined Alcohol with any other Substance of Abuse during the last 90 days?: No Positive Blood Alcohol level on Presentation? [PCS.BAL]: No Evidence of Increased Autonomic Activity (i.e. HR>120, tremor, sweating, agitation, nausea)?: No Result: 0
--- NOTE | 2021-12-02 08:24 | W.PM.DS.N ---
Date of service: 12/02/21 Time of Service: 08:24 DS: Diagnosis Discharge Diagnosis (1) Appendicitis: Status: Acute Discharge Plan Disposition Patient Disposition: HOME Condition: Good Discharge Details Reason For Visit: Appendicitis Admit Date/Time: 11/29/21 20:26 Admit Provider: Joyce Carpio Attending Provider: Joyce Carpio [facility]: 51-year-old male who presented to the ER with abdominal pain, nausea, vomiting and diarrhea who was found to have appendicitis on his CAT scan. Patient underwent having a laparoscopic appendectomy with Dr. Carpio on 11/30. Patient was admitted for IV antibiotics and was kept an additional night to continue his antibiotics due to leukocytosis and low-grade fevers. Leukocytosis is now resolved and he has not had any fevers in over 24 hours. Patient is tolerating a regular diet and pain is very well controlled. Patient will require a 2-week follow-up with surgical office. Home Meds and New Rx's Prescriptions: No Action No Known Home Meds Discharge Instructions Instructions: Laparoscopic Appendectomy (DC) Additional Instructions: No lifting, pushing, pulling greater than 10 pounds. No strenuous bending or twisting for 2 weeks. Referrals: Joyce Carpio MD [ [facility] STAFF PHYSICIAN] - Activity:: NO lifting/pushing/yahir Equipment/Supplies:: No Equipment Needed Diet:: Normal Diet DS: Summary Time Spent with Patient providing and/or coordinating discharge services: Less than 30 minutes Status at Discharge Functional status at discharge: independent ambulation Overall status at discharge: patient is back to baseline Mental Status: mental status grossly normal Speech and Movement: speech and movement normal Mood: congruent mood Affect: normal affect Exam Const General: cooperative, healthy appearing and comfortable Orientation: alert and oriented x3 Resp Effort & Inspection: normal respiratory effort, no audible wheezes and no cough GI Inspection: normal to inspection Palpation: soft, no guarding and tender in the LLQ Psych Mental Status: mental status grossly normal Speech and Movement: speech and movement normal Mood: congruent mood Affect: normal affect DS: Data Vitals/I&O Vitals and I&O: Vital Signs Temperature 36.1 C L 12/02/21 08:20 Temperature Source Tympanic 12/02/21 08:20 Pulse 63 12/02/21 08:20 Pulse Rhythm Regular 12/02/21 07:20 Pulse 88 11/29/21 21:01 Respiratory Rate 16 12/02/21 08:20 Respiratory Effort Non-Labored 12/02/21 07:20 Respiratory Depth Normal 12/02/21 07:20 Respiratory Pattern Normal 12/02/21 07:20 Blood Pressure 127/83 12/02/21 08:20 Blood Pressure Mean 79 11/29/21 21:01 Blood Pressure Position Sitting 11/29/21 17:57 Pulse Oximetry 98 12/02/21 08:20 Respiratory End-tidal CO2 30 11/30/21 09:40 Oxygen Delivery Method Room Air 12/02/21 08:20 Oxygen Flow Rate 0 12/02/21 08:20 Pain Level 0 12/02/21 08:20 Comment 11/29/21 21:29 Intake & Output 12/01/21 12/02/21 12/02/21 18:59 06:59 18:59 Intake Total 1153.333 / 1553.333 400 / 1553.333 Output Total 950 / 950 Balance 1153.333 / 603.333 -550 / 603.333 Intake: IV 633.333 / 733.333 100 / 733.333 Oral 520 / 820 300 / 820 Output: Urine 950 / 950 Other: Urine Color Straw Urine Appearance Clear Clear Clear Urine Odor Normal Comment patient voids independently Voiding Methods Toilet Toilet Data Completed and Pending Labs on day of discharge: Labs from last 24 hours 12/02/21 07:07 WBC 10.16 RBC 4.42 Hgb 13.7 Hct 40.6 MCV 92 MCH 31.0 MCHC 33.7 RDW 11.9 Plt Count 177 MPV 9.9 Immature Gran % 0.3 Neutrophils % 79.3 Lymphocytes % 12.2 Monocytes % 7.3 Eosinophils % 0.5 Basophils % 0.4 Nucleated RBC % 0.0 Absolute Neutrophils 8.06 H Absolute Lymphocytes 1.24 Absolute Monocytes 0.74 Absolute Eosinophils 0.05 Absolute Basophils 0.04 PFSH All Active Problems (Updated 11/29/21 @ 22:18 by Joyce Carpio MD) Appendicitis (Acute) Medical History (Updated 11/29/21 @ 22:18 by Joyce Carpio MD) Erythema migrans (Lyme disease) Hyperlipidemia Surgical History H/O myringotomy (~1980) S/P tonsillectomy and adenoidectomy (~1980) Family History Mother , in her 60s of lung cancer Lung cancer Emphysema of lung Life long smoker Father , in his late 60s of brain cancer Brain cancer Heart disease Myocardial infarction in his 50s Sister No problems noted. Sister No problems noted. Brother Epilepsy Daughter No problems noted. Son No problems noted. Son No problems noted. Maternal Grandfather Alcohol abuse Maternal Grandmother No problems noted. Paternal Grandfather , of broken heart after /70 No problems noted. Paternal Grandmother , 60 Cervical cancer Social History Smoking/Tobacco Use Status: Never Second Hand Exposure: Yes Smoking risk assessment performed?: Yes Alcohol Intake: current Alcohol Intake frequency: a few times a month Alcohol type: beer Drug use: Never Substance use type: does not use Caregiver/Support person: No Household members: spouse, family and children Housing: apartment Number of Children: 3 number of grandchildren: 3 Communication Needs: None Do you need help understanding health information?: Never Pets and animals: Yes Pets and animals: cat(s) and dog(s) Sexually active: Yes Do you think of yourself as: straight/heterosexual Current gender identity: male What is your relationship status?: How often do you talk on the phone with friends or family?: twice per week How often do you get together with friends or relatives?: three or more times per week How often do you attend rastafari or worship services?: decline to answer Do you belong to any clubs or organized social groups?: no Panel score (0-1 are the most socially isolated patients): 2 What type of physical activity do you participate in: walking Duration: 30-45 minutes/day Frequency: 3-4 times per week Kristie/Sabianism: None Special kristie needs: No Seatbelt use: always Helmet use: No Drive intox or ride w/intox cpr ambulance driver: No Do you feel safe at home: Yes Do you feel safe in your relationship?: Yes
--- NOTE | 2021-12-02 08:50 | PDOC.CMDIS ---
- If Service Date Differs Date of service: 12/02/21 Time of Service: 08:50 LACE Index Scoring Tool - Questions: Length of Stay (in days): 3 Acuity (Admit via E.D.?): Yes E.D. Visits: 1 - Answers: Total Score: 7 Risk of Readmission: Low Risk Care Management Discharge Reason for Hospitalization: appendicitis Discharge Plan: Efrain will be discharged home with no new services. He will follow up with his community providers and plan of care and transport with family. Patient/Family Education Needs: Review of discharge instructions, limitations, follow up plan, activity, discuss Ask Me Three
== END 2021-12-02 09:58 | disposition home or self-care (01) | DRG 343 ==
LOC: ER 20:58 → MS 21:13
PROVIDERS: Physical Therapy Assistant; Admitting Provider Surgery; Emergency Provider Physician Assistant; PCP Nurse Practitioner Family; Visit Provider Surgery
PROC: 0DTJ4ZZ Resection of Appendix, Percutaneous Endoscopic Approach (ICD-10-PCS; CPT 44970; principal; 2021-11-30 07:30)
DX: K35.891 Other acute appendicitis without perforation, with gangrene (principal); E78.5 Hyperlipidemia, unspecified
CPT/HCPCS: 44970; 36415; 80048; 80053; 83690; 85027; 87635; 96361; 96365; 96375; 99285; 74177; 81003; 81015; 85025; 88304; J1100; J1885; J2270; J2405; J2543; J3010; J3490

== ENCOUNTER 2022-10-24 22:40 | Outpatient (CLI) | payer BC, SELFPAY ==
--- NOTE | 2022-10-24 15:15 | DI.RAD_ITS ---
Exam(s) XR LUMBAR SPINE COMPLETE EXAM: XR LUMBAR SPINE COMPLETE CLINICAL HISTORY: evaluate pathology, lumbar pain, M54.50. TECHNIQUE: 2D digital imaging was performed of the lumbar spine. Five images were obtained. AP, la teral, right oblique, left oblique and L5-S1 spot views were obtained. COMPARISON: CR XR lumbar spine complete from 04/06/2018 FINDINGS: BONES: No fracture or destructive lesion. There are endplate osteophytes. Degenerative changes of th e facets are seen at L4-5 and L5-S1. DISKS: Intervertebral disc spaces are maintained. ALIGNMENT: Lumbar spinal alignment is within normal limits. No spondylolysis or spondylolisthesis. SOFT TISSUE: Normal. IMPRESSION: Degenerative changes in the lumbar spine. DATA REPOSITORY: RADIATION DOSE DELIVERED:
== END 2022-10-24 23:00 ==
PROVIDERS: PCP Nurse Practitioner Family; Visit Provider Nurse Practitioner Family
DX: M51.36 Other intervertebral disc degeneration, lumbar region; M54.50 Low back pain, unspecified
CPT/HCPCS: 72110

== ENCOUNTER 2022-10-31 11:46 | Outpatient (REF) | payer BC, SELFPAY ==
--- NOTE | 2022-10-31 08:40 | SKI_PTH ---
PATIENT: Efrain Lewis LOC: [facility]#:[id number] AGE/SX: 52/M ROOM: RE10/31/[address]: BROCK Camejo : 1970 BED: DIS: 10/31/2022 SPEC #: [id number] RECD: 11/01/22 12:14 STATUS: ZACHARIAH RECristina #: [id number] KRISHAN: 10/31/22 08:[address]: Ashanti Murry DEPT: Surgical Specimen RECD BY: Leda Soliman Tissues: 1 - SKIN CYST/TAG/DEBRIDEMENT Procedures: GROSS AND MICRO LEVEL 3 Comments: [id number]
== END 2022-10-31 11:47 | disposition home or self-care (01) ==
LOC: LBN 11:46
PROVIDERS: PCP Nurse Practitioner Family; Visit Provider Nurse Practitioner Family
DX: L91.8 Other hypertrophic disorders of the skin (principal); R23.8 Other skin changes
CPT/HCPCS: 88304

== ENCOUNTER 2023-06-19 06:18 | Day surgery (SDC) | payer BC, SELFPAY ==
--- NOTE | 2023-06-18 17:24 | PDOC.DSDIS_ITS ---
Date of service: 06/19/23 Time of Service: 07:54 Discharge Plan Disposition Patient Disposition: Home Condition: Good Discharge Details Reason For Visit: screening colonoscopy Attending Provider: Efrain Lazo Primary Care Provider: Ashanti Murry Home Meds and New Rx's Prescriptions: Continued No Known Home Meds Discharge Instructions Additional Instructions: Efrain, we are able to complete your colonoscopy today without any difficulty. Your prep was excellent and I could see everything just fine. I did not see any signs of any tumors, polyps, or anything else that is worrisome. With negative screening colonoscopy, minimal risk for colon cancer otherwise, you will need a follow-up colonoscopy in 10 years. 1. If tolerated, consume a soft, low fiber diet for 1-2 days. [address] Do not drive, drink alcohol, operate machinery, make critical decisions, or do activities that require coordination or balance for 24 hours. 3. Because air was put into your colon during the procedure, expelling air from your rectum (passing gas or farting) is normal. 4. You may not have a bowel movement for 1-3 days because of the colonoscopy prep. This is normal. 5. Go directly to the emergency room if you notice any of the following: Develop chills (warm to touch), or if you have a thermometer and your temperature is above 101 Difficulty breathing or difficultly swallowing Persistent vomiting Severe abdominal pain, other than gas cramps Severe chest pain Black, tarry stools Any bleeding ? exceeding one tablespoon 6. Call your physician if the site where your intravenous was started becomes red, swollen, painful, and warm to touch. 7. Your physician has reviewed your pre-procedure medications. Please continue t o take those medications as previously ordered. You will be given specific information/education regarding any changes to your medications before leaving. Stand Alone Forms: Anesthesia Discharge Inst., Justin Rodriguez (DSU) Activity:: Activity as Tolerated Diet:: As Tolerated Discharge Orders Discharge Orders: Discharge Order (Routine); Ordered 06/18/23 Ordered By: Efrain Lazo DS: Diagnosis Discharge Diagnosis (1) Encounter for screening colonoscopy: Status: Acute Asessment and Plan: Negative screening colonoscopy; follow-up in 10 years
--- NOTE | 2023-06-18 17:25 | COLE_ITS ---
Date of service: 06/19/23 Time of Service: 07:55 Colonoscopy Report Date of procedure: 06/19/23 Pre-op diagnosis general: screening colonoscopy Procedure: colonoscopy Surgeon: Efrain Lazo Anesthesia Type: General:No Airway Estimated blood loss (mL): 0 Pathology: none sent Complications: None Disposition: same day Indications: Efrain is a 53 year old man who needs his first screening colonoscopy Prep: Miralax/Dulcolax Procedure Start Time: 07:32 Procedure End Time: 07:46 Retraction Time: 9 Findings: Negative screening colonoscopy Procedure Description: After the induction of monitored anesthetic care, and with the patient in left lateral decubitus position, I began by performing an external anorectal exam.? Perineum and skin were normal, as was the anal verge.? There was no evidence of external hemorrhoids.? Next, I performed a digital rectal exam.? I did not appreciate any abnormal findings.? Next, I advanced a colonoscope into the rectal vault.? I performed retroflexion.? This was normal.? Using insufflation, I then advanced the colonoscope beyond the rectal folds and into the sigmoid colon before advancing towards the cecum.? The quality of the prep was excellent.? The scope was noted to be in the cecum by identification of the ileo cecal valve and appendiceal orifice.? I then began withdrawing the colonoscope using repeated irrigation as necessary for full evaluation of the colonic mucosa. ?Once the scope was withdrawn to the level of the rectum, great care was taken to examine portions of the rectal folds.? I did not see any signs of tumors, polyps, or any other worrisome pathology. Finally, the scope was withdrawn and the patient was brought to the same-day surgery recovery unit as the anesthetic wore off. ?The findings and instructions were shared with the patient prior to discharge. Creston Bowel Prep Creston Bowel Prep Right Colon: 3 Left Colon: 3 Transverse Colon: 3 Total Score: 9
[2023-06-19 06:15] VITALS: BP 114/88; PULSE 70; RESP 18; TEMP 36.5; O2SAT 99
[2023-06-19] MEDS: Lactated Ringers 1,000 ML 80 ML IV (06:42)
--- NOTE | 2023-06-19 07:11 | W.ANESPRE ---
General Info Date of Service Date Performed: 06/19/23 Height: 6 ft 2 in Weight: 123.1 kg Body Mass Index (BMI): 34.8 Surgical Procedure: Operation Date: 06/19/23 07:35 Proposed Procedure Side Surgeon p Colonoscopy Efrain Lazo MD Actual Procedure Side Surgeon p Colonoscopy Not Applicable Efrain Lazo MD Pre-Op Diagnosis Post-Op Diagnosis Screening colonoscopy Screening colonoscopy Meds Allergies and Home Medications Allergies Allergy/AdvReac Type Severity Reaction Status Date / Time No Known Allergies Allergy Verified 06/19/23 06:28 Home Medication Medication Instructions Recorded Unknown [No Known Home Meds] 12/23/22 Current Visit Medications: Current Medications Generic Name Dose Route Start Last Admin Trade Name Freq PRN Reason Stop Dose Admin Hyoscyamine Sulfate 0.125 mg 06/18/23 17:26 Hyoscyamine 0.125 Mg Sl/Oral/Chew SL 07/18/23 17:25 DIRECTED PRN Ringer's Solution 1,000 mls @ 80 mls/hr 06/19/23 06:00 06/19/23 06:42 IV 07/16/23 23:59 80 mls/hr INFUSION ANNITA Administration IV Miscellaneous Supplies 1 each 06/19/23 06:00 Iv Access IV 07/16/23 23:59 DIRECTED ANNITA Ondansetron HCl 4 mg 06/18/23 17:26 Ondansetron 4 Mg/2 Ml Vial IVP 07/18/23 17:25 Q4H PRN PRN Nausea / Vomiting Sodium Chloride 0 ml 06/19/23 06:00 Normal Saline Flush 10 Ml Syr IV 07/16/23 23:59 PRN PRN Sodium Chloride 0 ml 06/19/23 06:00 Normal Saline 10 Ml Vial IJ 07/16/23 23:59 DIRECTED PRN Sterile Water 0 ml 06/19/23 06:00 Water,Injection,Sterile 10 Ml Vial IJ 07/16/23 23:59 DIRECTED PRN PFSH Active Problems Active Problems: Problem Status Onset Code Encounter for screening colonoscopy Z12.11 Obesity E66.9 Prediabetes R73.03 Degenerative joint disease (DJD) of lumbar spine M47.816 Hyperlipidemia E78.5 Medical History Medical History Erythema migrans (Lyme disease) Pt. denies Surgical History Surgical History History of hemilaminectomy (05/29/18) left L4-L5 hemilaminectomy, medial facetectomy, lateral recess decompression S/P appendectomy (11/30/21) S/P tonsillectomy and adenoidectomy (~1980) H/O myringotomy (~1980) Tobacco Smoking/Tobacco Use Status: Never Passive smoking exposure: No Second hand exposure: Yes Alcohol Alcohol Intake: current Alcohol intake frequency: a few times a month Alcohol type: beer Substance Use Substance use: Never Substance use type: does not use Vital Signs and Lab Results Vital Signs Most Recent Vital Signs in EMR: Most Recent Vital Signs Temp Pulse Resp BP Pulse Ox 36.5 C 70 18 114/88 99 06/19/23 06:15 06/19/23 06:15 06/19/23 06:15 06/19/23 06:15 06/19/23 06:15 Lab Results Blood Type / Crossmatch: No Data to Display Complete Blood Count: No Data to Display Complete Metabolic Panel: No Data to Display Liver Function Panel: No Data to Display Coagulation Panel: No Data to Display Cardiac Panel: No Data to Display Arterial Blood Gas: No Data to Display Venous Blood Gas: No Data to Display Pancreas Panel: No Data to Display Thyroid Panel: No Data to Display Infectious Disease: No Data to Display Blood Cultures: No Data to Display Toxicology Panel: No Data to Display Anesthesia Assessment and Plan Anesthesia History Personal History: No History of Anesthesia Complications Family History: No Family History of Anesthesia Complications Exercise Tolerance Exercise Tolerance: Metabolic Equivalents>4 Pertinent Negatives Pertinent Negatives: No Symptoms of GERD, No Major Cardiovascular Symptoms or Complaints and No Major Pulmonary Symptoms or Complaints Cardiac & Pulmonary Exam Cardiac Exam: Normal S1/S2 Heart Sounds Pulmonary Exam: Clear Bilateral Breath Sounds Implantable Cardiac Device Does patient have a Pacemaker or an ICD?: No Airway Exam Known Difficult Airway: No Mallampati Class: 2 Mouth Opening: Normal (> 3cm) Thyromental Distance: Less than 3 cm Neck Range of Motion: Full ROM Neck Circumference: Normal Teeth Condition: Normal Dentition ASA Classification ASA Score: ASA 2 Emergency Case?: No NPO Status NPO Status: NPO Clears >2 hours, Solids >8 hours Anesthesia Plan Resuscitation Status: Full Code Anesthesia Technique: General Anesthesia Airway Planned: Natural Airway Monitors Used: Standard Monitors
[2023-06-19 07:14] VITALS: BMI 34.8
[2023-06-19 07:51] VITALS: BP 115/82; PULSE 71; RESP 16; TEMP 36.7; O2SAT 95
[2023-06-19 08:18] VITALS: BP 114/75; PULSE 60; RESP 16; TEMP 36.2; O2SAT 96
--- NOTE | 2023-06-19 08:22 | W.ANESPOSTOP ---
Postoperative Evaluation Date, Time and Location Date Performed: 06/19/23 Time Performed: 08:05 Patient Location: Day Surgery Unit Vital Signs Most Recent Imported Vital Signs: Most Recent Vital Signs Temp Pulse Resp BP Pulse Ox 36.2 C L 60 16 114/75 96 06/19/23 08:18 06/19/23 08:18 06/19/23 08:18 06/19/23 08:18 06/19/23 08:18 Pain Score Most Recent Pain Score: Most Recent Pain Score Pain Level 0 06/19/23 08:18 Assessment Mental Status: Awake (Alert & Oriented to Patient Baseline) Airway and Respiratory Function: Patent airway with normal (patient baseline) respiratory exam Cardiovascular Function: Hemodynamically Stable Hydration Status: Adequately Hydrated Nausea & Vomiting: No Nausea or Vomiting Pain: Pt. Denies Any Pain Peripheral Nerve Block: Patient did not receive a nerve block
== END 2023-06-19 08:29 | disposition home or self-care (01) ==
PROVIDERS: PCP Nurse Practitioner Family; Visit Provider Surgery
PROC: 0DJD8ZZ Inspection of Lower Intestinal Tract, Via Natural or Artificial Opening Endoscopic (ICD-10-PCS; CPT 45378; principal; 2023-06-19 07:30)
DX: Z12.11 Encounter for screening for malignant neoplasm of colon (principal)
CPT/HCPCS: 45378; J2704